=== PATIENT | female | born 1955 | race Caucasian/White ===

== ENCOUNTER 2021-12-03 07:49 | Emergency (ER) | payer OTHER ==
[~2021-12-03 07:49] MED LIST: AZULFIDINE500 M1 PO; NATURE'S BLEND F1 MG PO
[2021-12-03 08:43] LABS: BASO % 0.2 % (0.0-1.0); EOS % 0.2 % (1.0-4.0); HEMATOCRIT 47.8 % (37.0-47.0); LYMPH # 1.1 10*3/uL (1.3-4.4); LYMPH % 7.1 % (27.0-41.0); MEAN CELL VOLUME 95.4 fl (81.0-99.0); MEAN CORPUSCULAR HGB 31.9 pg (27.0-31.0); MEAN CORPUSCULAR HGB CONC 33.5 g/dl (33.0-37.0); MONO # 1.1 10*3/uL (0.1-1.0); MONO % 7.3 % (3.0-9.0); NEUT # 12.7 10*3/uL (2.3-7.9); NEUT % 84.9 % (47.0-73.0); PLATELET COUNT AUTOMATED 278 10*3/uL (130-400); RED BLOOD COUNT 5.01 10*6/uL (4.10-5.10)
[2021-12-03 08:58] LABS: ALKALINE PHOSPHATASE 98 U/L (45-117); BUN 9 mg/dl (7-24); CHLORIDE 109 mmol/L (98-107); CREATININE 0.64 mg/dL (0.55-1.02); LIPASE 129 U/L (73-393); POTASSIUM 3.6 mmol/L (3.5-5.1); SGOT/AST 13 IU/L (3-35); SGPT/ALT 17 U/L (12-78); SODIUM 137 mmol/L (136-145); TOTAL PROTEIN 7.5 gm/dL (6.4-8.2)
[2021-12-03 09:00] LABS: BILIRUBIN Negative (Negative); BLOOD Negative (Negative); CLARITY Clear (Clear); COLOR Yellow (Yellow); GLUCOSE Negative (Negative); KETONE Negative (Negative); LEUKO ESTERASE 2+ (Negative); NITRITE Negative (Negative); PH 5.5 (4.5-8.0); SPECIFIC GRAVITY <= 1.005 (1.001-1.030); UROBILINOGEN 0.2 E.U./dl (0.0-1.0)
[2021-12-03 09:25] LABS: CALCIUM OXALATE CRYSTALS 1+; EPITHELIAL CELLS 16-20
[2021-12-03] MEDS ORDERED: METRONIDAZOLE500 M1 PO (10:54)
[2021-12-03] MEDS ORDERED: AUGMENTIN 875-875 MG PO (10:54)
[2021-12-03] MEDS ORDERED: DIFLUCAN150 MG PO (11:04)
== END 2021-12-03 10:59 | disposition home or self-care (01) ==
LOC: ED 07:49
PROVIDERS: Family Medicine
DX: K57.32 Diverticulitis of large intestine without perforation or abscess without bleeding (principal); Z88.1 Allergy status to other antibiotic agents; Z79.899 Other long term (current) drug therapy; F17.200 Nicotine dependence, unspecified, uncomplicated; Z90.89 Acquired absence of other organs

== ENCOUNTER 2022-07-12 09:49 | Inpatient (IN) | payer OTHER ==
[~2022-07-12] VITALS: Ht 172.7 cm; Wt 66.5 kg
[~2022-07-12 09:49] MED LIST changes: +AUGMENTIN 875-875 MG PO; +DIFLUCAN150 MG PO; +METRONIDAZOLE500 M1 PO
[2022-07-12 10:07] VITALS: BP 150/89
[2022-07-12 10:33] VITALS: BP 141/85
[2022-07-12 10:35] LABS: BASO % 0.4 % (0.0-1.0); EOS % 0.2 % (1.0-4.0); HEMATOCRIT 49.4 % (37.0-47.0); LYMPH # 1.6 10*3/uL (1.3-4.4); LYMPH % 18.8 % (27.0-41.0); MEAN CELL VOLUME 93.9 fl (81.0-99.0); MEAN PLATELET VOLUME 8.7 fl (9.6-12.3); MONO # 0.5 10*3/uL (0.1-1.0); MONO % 6.3 % (3.0-9.0); NEUT # 6.1 10*3/uL (2.3-7.9); NEUT % 73.9 % (47.0-73.0); PLATELET COUNT AUTOMATED 350 10*3/uL (130-400); RED BLOOD COUNT 5.26 10*6/uL (4.10-5.10); RED CELL DISTRI WIDTH 12.9 % (0-14.5); WHITE BLOOD COUNT 8.3 10*3/uL (4.8-10.8)
[2022-07-12 10:46] LABS: ACT PARTIAL THROMBO TIME 25.9 SECONDS (20.0-32.1)
[2022-07-12 10:53] LABS: ALKALINE PHOSPHATASE 81 U/L (46-116); BUN 7 mg/dl (9-23); CHLORIDE 104 mmol/L (98-107); LIPASE 43 U/L (12-53); POTASSIUM 3.8 mmol/L (3.4-5.1); SGPT/ALT 8 U/L (10-49); TOTAL PROTEIN 7.6 gm/dL (6.0-8.0)
[2022-07-12 15:15] VITALS: BP 150/80
[2022-07-12 16:00] VITALS: BP 150/80
[2022-07-12 20:00] VITALS: BP 154/86
[2022-07-13] VITALS: BP 162/86
[2022-07-13 06:22] LABS: BASO # 0.1 10*3/uL (0.0-0.1); BASO % 0.9 % (0.0-1.0); EOS # 0.2 10*3/uL (0.0-0.4); EOS % 3.1 % (1.0-4.0); HEMATOCRIT 42.3 % (37.0-47.0); LYMPH # 1.8 10*3/uL (1.3-4.4); LYMPH % 31.1 % (27.0-41.0); MEAN PLATELET VOLUME 9.2 fl (9.6-12.3); MONO # 0.7 10*3/uL (0.1-1.0); MONO % 11.3 % (3.0-9.0); NEUT # 3.1 10*3/uL (2.3-7.9); NEUT % 53.3 % (47.0-73.0); PLATELET COUNT AUTOMATED 327 10*3/uL (130-400); WHITE BLOOD COUNT 5.8 10*3/uL (4.8-10.8)
[2022-07-13 06:46] LABS: VITAMIN D, 25-HYDROXY 15.1 ng/mL (30-100)
[2022-07-13 06:54] LABS: ALKALINE PHOSPHATASE 68 U/L (46-116); BUN 7 mg/dl (9-23); CHLORIDE 109 mmol/L (98-107); CHOLESTEROL 191 mg/dL (<200); FREE T4 1.36 ng/dl (0.89-1.76); LDL CHOLESTEROL 97 mg/dL (9-159); POTASSIUM 3.8 mmol/L (3.4-5.1); TOTAL PROTEIN 6.2 gm/dL (6.0-8.0); TRIGLYCERIDES 98 mg/dl (<150)
[2022-07-13 06:56] LABS: SGPT/ALT < 7 U/L (10-49)
[2022-07-13 08:00] VITALS: BP 136/81
[2022-07-13 12:00] VITALS: BP 125/79
[2022-07-13 16:00] VITALS: BP 97/70
[2022-07-13] MEDS ORDERED: ASPIRIN ADULT L81 M2 PO ×2 (16:11)
[2022-07-13] MEDS ORDERED: VITAMIN D350 MC2 PO (16:12)
== END 2022-07-13 17:30 | disposition home or self-care (01) | DRG 313 ==
LOC: ED 09:49 → EDHOLD 13:37 → 4E 13:37
PROVIDERS: Emergency Medicine; Internal Medicine; ADMIT Student in an Organized Health Care Education/Training Program; ATTEND Student in an Organized Health Care Education/Training Program
PROC: 4A02XM4 Measurement of Cardiac Total Activity, External Approach (ICD-10-PCS; principal; 2022-07-13)
PROC: 3E073KZ Introduction of Other Diagnostic Substance into Coronary Artery, Percutaneous Approach (ICD-10-PCS; 2022-07-13)
DX: R07.89 Other chest pain (principal); D75.1 Secondary polycythemia; R73.9 Hyperglycemia, unspecified; F17.210 Nicotine dependence, cigarettes, uncomplicated; R91.1 Solitary pulmonary nodule; Z88.1 Allergy status to other antibiotic agents

== ENCOUNTER → 2022-07-27 | Day surgery (SDC) | payer OTHER ==
[2022-07-27] VITALS (8 sets, daily range): BP systolic 129–148; BP diastolic 75–98
[~2022-07-27] MED LIST changes: +ASPIRIN ADULT L81 M2 PO; +ASPIRIN CHEWABL81 MG PO; +BENADRYL ALLERG25 M5 PO; +VITAMIN D350 MC2 PO
== END | disposition home or self-care (01) ==
LOC: SDC 02:35
PROVIDERS: ATTEND Internal Medicine
DX: R91.8 Other nonspecific abnormal finding of lung field (principal); D75.1 Secondary polycythemia; R07.9 Chest pain, unspecified; F17.210 Nicotine dependence, cigarettes, uncomplicated; R03.0 Elevated blood-pressure reading, without diagnosis of hypertension; Z90.89 Acquired absence of other organs; Z79.82 Long term (current) use of aspirin; Z79.899 Other long term (current) drug therapy

== ENCOUNTER 2023-01-22 16:00 | Emergency (ER) | payer OTHER, MEDICARE ==
[~2023-01-22] VITALS: Ht 172.7 cm; Wt 74.8 kg
[2023-01-22 17:20] LABS: BASO # 0.1 10*3/uL (0.0-0.1); BASO % 0.7 % (0.0-1.0); EOS # 0.1 10*3/uL (0.0-0.4); EOS % 1.9 % (1.0-4.0); HEMATOCRIT 40.8 % (37.0-47.0); LYMPH % 29.3 % (27.0-41.0); MEAN CELL VOLUME 92.3 fl (81.0-99.0); MEAN CORPUSCULAR HGB 31.2 pg (27.0-31.0); MEAN CORPUSCULAR HGB CONC 33.8 g/dl (33.0-37.0); MEAN PLATELET VOLUME 8.7 fl (9.6-12.3); MONO # 0.8 10*3/uL (0.1-1.0); NEUT # 3.9 10*3/uL (2.3-7.9); NEUT % 56.8 % (47.0-73.0); PLATELET COUNT AUTOMATED 266 10*3/uL (130-400); RED BLOOD COUNT 4.42 10*6/uL (4.10-5.10); RED CELL DISTRI WIDTH 12.7 % (0-14.5); WHITE BLOOD COUNT 6.8 10*3/uL (4.8-10.8)
[2023-01-22 17:41] LABS: ALKALINE PHOSPHATASE 83 U/L (46-116); BUN 6 mg/dl (9-23); CHLORIDE 107 mmol/L (98-107); POTASSIUM 3.4 mmol/L (3.4-5.1); SGPT/ALT 15 U/L (10-49); TOTAL PROTEIN 6.9 gm/dL (6.0-8.0)
[2023-01-22] MEDS ORDERED: AMOX-CLAV 875-1 EACH PO (17:46)
[2023-01-22] MEDS ORDERED: FLUCONAZOLE100 MG PO (19:28)
== END 2023-01-22 19:28 | disposition home or self-care (01) ==
LOC: ED 16:00
PROVIDERS: Nurse Practitioner Family
DX: S61.231A Puncture wound without foreign body of left index finger without damage to nail, initial encounter (principal); Z88.6 Allergy status to analgesic agent; Z88.8 Allergy status to other drugs, medicaments and biological substances; Z90.89 Acquired absence of other organs; Z98.890 Other specified postprocedural states; F17.200 Nicotine dependence, unspecified, uncomplicated; W55.01XA Bitten by cat, initial encounter; Y93.89 Activity, other specified; Y92.89 Other specified places as the place of occurrence of the external cause; Y99.8 Other external cause status

== ENCOUNTER → 2023-03-23 | Outpatient (CLI) | payer MEDICARE, OTHER ==
[~2023-03-23] MED LIST changes: +AMOX-CLAV 875-1 EACH PO; +FLUCONAZOLE100 MG PO
== END | disposition home or self-care (01) ==
LOC: CT 03-22 09:00
PROVIDERS: ATTEND Internal Medicine
DX: J43.9 Emphysema, unspecified (principal); R91.1 Solitary pulmonary nodule